=== PATIENT | male | born 1995 | race Caucasian/White ===

== ENCOUNTER 2021-01-31 14:53 | Emergency (ER) | payer OTHER ==
[~2021-01-31] VITALS: Ht 180.3 cm; Wt 87.3 kg
[2021-01-31] MEDS ORDERED: IBUP-1022 PO (15:07)
[2021-01-31] MEDS ORDERED: OXYC1TAB23 PO (15:07)
[2021-01-31] MEDS ORDERED: PERCOCET 5MG/325MG TAB PO ONE (19:10)
--- NOTE | 2021-01-31 19:59 | REP ---
INDICATION: left great toe injury COMPARISON: None. TECHNIQUE: Four views left foot. FINDINGS: There is no evidence of acute fracture, dislocation, or intrinsic bone disease.The joint spaces are unremarkable. IMPRESSION: No fracture or dislocation. <Electronically signed by Capo Sanders > 01/31/211954
[2021-01-31] MEDS ORDERED: CEPHALEXIN 500 MG CAP PO ONE (21:00)
[2021-01-31] MEDS ORDERED: CEPH500C PO (21:00)
--- NOTE | 2021-01-31 21:31 | REPVR ---
PROCEDURE INFORMATION: Exam: US Duplex Left Lower Extremity Veins, Limited Exam date and time: 01/31/2021 7:49 PM Age: 25 years old Clinical indication: Pain; Leg, lower; Left; Additional info: Left leg pain after injury, ? dvt TECHNIQUE: Imaging protocol: Real-time Duplex ultrasound of the Left Lower Extremity with 2-D barney scale, color Doppler flow and spectral waveform analysis with image documentation. Limited exam focused on the left lower extremity veins. COMPARISON: CR Foot, complete 01/31/2021 7:09 PM FINDINGS: Left deep veins: Unremarkable. The common femoral, femoral, proximal profunda femoral and popliteal veins are patent without thrombus. Normal Doppler waveforms. Normal compressibility and/or augmentation response. Left superficial veins: Unremarkable. Saphenofemoral junction is patent without thrombus. Soft tissues: Unremarkable. IMPRESSION: Negative left lower extremity venous duplex exam without evidence of deep venous thrombosis. Electronically signed by: Spencer Peace On 01/31/2021 21:31:21 PM
[2021-01-31 22:01] VITALS: BP 130/80
== END 2021-01-31 21:37 | disposition home or self-care (01) ==
LOC: M ED 14:53
DX: S90.212A Contusion of left great toe with damage to nail, initial encounter (principal); W23.0XXA Caught, crushed, jammed, or pinched between moving objects, initial encounter; Y92.89 Other specified places as the place of occurrence of the external cause; Y93.89 Activity, other specified; Y99.1 Military activity

== ENCOUNTER 2021-02-04 12:34 | Emergency (ER) | payer OTHER ==
[~2021-02-04] VITALS: Ht 180.3 cm; Wt 87.3 kg
[~2021-02-04 12:34] MED LIST: CEPH500C PO; IBUP-1022 PO; OXYC1TAB23 PO
--- NOTE | 2021-02-04 15:44 | REPVR ---
PROCEDURE INFORMATION: Exam: CT Left Lower Extremity Without Contrast, Ankle Exam date and time: 02/04/2021 2:39 PM Age: 25 years old Clinical indication: Pain; Ankle; Left; Additional info: Continuous pain /multiple visits/not able bear weight TECHNIQUE: Imaging protocol: CT of the Left lower extremity without contrast was performed. Exam focused on the ankle. Radiation optimization: All CT scans at this facility use at least one of these dose optimization techniques: automated exposure control; mA and/or kV adjustment per patient size (includes targeted exams where dose is matched to clinical indication); or iterative reconstruction. COMPARISON: US Duplex, Ext,LOWER veins,unilat LEFT 01/31/2021 7:54 PM FINDINGS: Bones/joints: No acute fracture. Ossifications present caudal to the distal medial malleolar tip which may represent chronic avulsions or accessory ossifications. An 11.3 x 7.2 x 4.1 mm os trigonum is present, a sometimes symptomatic normal variant. No calcaneal spur. Soft tissues: Soft tissue edema adjacent to the medial plantar fascia origin (series 204, image 19; series 201, images 79 -76). No calcifications within the plantar fascia. IMPRESSION: Possible plantar fasciitis. Clinical correlation with the patient's specific symptomatology is recommended. Electronically signed by: Kole Langford On 02/04/2021 15:43:57 PM
--- NOTE | 2021-02-04 15:48 | REPVR ---
PROCEDURE INFORMATION: Exam: CT Left Lower Extremity Without Contrast, Foot Exam date and time: 02/04/2021 2:39 PM Age: 25 years old Clinical indication: Pain; Foot; Left; Additional info: Continuous pain /multiple visits/not able bear weight TECHNIQUE: Imaging protocol: CT of the Left lower extremity without contrast was performed. Exam focused on the foot. Radiation optimization: All CT scans at this facility use at least one of these dose optimization techniques: automated exposure control; mA and/or kV adjustment per patient size (includes targeted exams where dose is matched to clinical indication); or iterative reconstruction. COMPARISON: US Duplex, Ext,LOWER veins,unilat LEFT 01/31/2021 7:54 PM FINDINGS: Bones/joints: No acute fracture. No destructive bony process identified. An os trigonum is present, a sometimes symptomatic normal variant. Soft tissues: Soft tissue edema adjacent to the medial plantar fascial origin. IMPRESSION: Possible plantar fasciitis. Clinical correlation with the patient's specific symptomatology is recommended. Electronically signed by: Kole Langford On 02/04/2021 15:47:42 PM
[2021-02-04 16:19] VITALS: BP 130/75
--- NOTE | 2021-02-04 18:41 | ED PDOC ---
Post-Departure Follow-Up ct foot and ankle faxed to monserr[facility] dexter for fu Taylor Tong MD Feb 04, 2021 18:41
== END 2021-02-04 16:22 | disposition home or self-care (01) ==
LOC: M ED 12:34
DX: S93.402A Sprain of unspecified ligament of left ankle, initial encounter (principal); S90.02XA Contusion of left ankle, initial encounter; M79.672 Pain in left foot; W20.8XXA Other cause of strike by thrown, projected or falling object, initial encounter; Y92.89 Other specified places as the place of occurrence of the external cause; Y93.9 Activity, unspecified; Y99.1 Military activity

== ENCOUNTER 2021-04-09 21:03 | Day surgery (SDC) | payer OTHER ==
[~2021-04-09] VITALS: Ht 180.3 cm; Wt 92.8 kg
[2021-04-09] MEDS ORDERED: ACET-841 PO (21:11)
[2021-04-10 01:38] LABS: BASO # 0.1 10^3/uL (0.0-0.2); BASO % 0.4 % (0.0-1.0); EOS # 0.1 10^3/uL (0.0-0.5); EOS % 0.5 % (0.0-3.0); HEMATOCRIT 45.6 % (42.0-52.0); HEMOGLOBIN 15.3 g/dl (13.5-17.5); LYMPH % 15.7 % (24.0-44.0); MEAN CORPUSCULAR HEMOGLOBIN 28.8 pg (27.0-33.0); MEAN CORPUSCULAR HGB CONC 33.6 g/dl (32.0-36.5); MEAN CORPUSCULAR VOLUME 85.7 fl (80.0-96.0); MONO # 2.5 10^3/uL (0.0-0.8); NEUTROPHILS # 13.5 10^3/uL (1.5-8.5); NEUTROPHILS % 69.9 % (36.0-66.0); PLATELET COUNT, AUTOMATED 240 10^3/uL (150-450); RED BLOOD COUNT 5.32 10^6/uL (4.30-6.10); WHITE BLOOD COUNT 19.3 10^3/uL (4.0-10.0)
[2021-04-10 02:13] LABS: ALBUMIN 4.1 GM/DL (3.2-5.2); ALT/SGPT 76 U/L (12-78); BILIRUBIN,DIRECT 0.2 MG/DL (0.0-0.2); BILIRUBIN,TOTAL 0.8 MG/DL (0.2-1.0); BLOOD UREA NITROGEN 18 MG/DL (7-18); CALCIUM LEVEL 9.4 MG/DL (8.5-10.1); CARBON DIOXIDE LEVEL 27 MEQ/L (21-32); CHLORIDE LEVEL 104 MEQ/L (98-107); CREATININE FOR GFR 1.34 MG/DL (0.70-1.30); GLOMERULAR FILTRATION RATE > 60.0 (>60); GLUCOSE, FASTING 81 MG/DL (70-100); LIPASE 83 U/L (73-393); POTASSIUM SERUM 4.1 MEQ/L (3.5-5.1); SODIUM LEVEL 138 MEQ/L (136-145); TOTAL PROTEIN 7.3 GM/DL (6.4-8.2)
[2021-04-10] MEDS ORDERED: MORPHINE 2 MG/ML 1ML VIAL (J2270) IV ONE ×2 (04:30→06:00)
[2021-04-10] MEDS ORDERED: PIPERACILLIN/TAZOBACTAM SOD 4.5 GM in D5W MINI-BAG PLUS 50 ML IV ONE (04:50)
--- NOTE | 2021-04-10 05:37 | REPVR ---
PROCEDURE INFORMATION: Exam: CT Abdomen And Pelvis Without Contrast Exam date and time: 04/10/2021 4:29 AM Age: 26 years old Clinical indication: Abdominal pain; Localized; Right lower quadrant (rlq); Additional info: Rule out appendicitis TECHNIQUE: Imaging protocol: Computed tomography of the abdomen and pelvis without contrast. Radiation optimization: All CT scans at this facility use at least one of these dose optimization techniques: automated exposure control; mA and/or kV adjustment per patient size (includes targeted exams where dose is matched to clinical indication); or iterative reconstruction. COMPARISON: No relevant prior studies available. FINDINGS: Lungs: There is minimal, nonspecific dependent density in the lung bases, likely mild atelectasis. Liver: The unenhanced liver appears unremarkable. Gallbladder and bile ducts: There has been a cholecystectomy. There is no biliary ductal dilation. Pancreas: The pancreas appears unremarkable. No pancreatic ductal dilation identified. Spleen: The unenhanced spleen appears unremarkable. Adrenal glands: The adrenal glands are normal. Kidneys and ureters: The unenhanced kidneys appear unremarkable. There are no ureteral stones or hydronephrosis. Stomach and bowel: Mild diverticulosis is present in the distal colon. There is no dilation or thickening of the colon. The small bowel appears unremarkable. Appendix: The appendix demonstrates thickening and distention, consistent with acute appendicitis. There is periappendiceal stranding. The appendix measures up to 13 mm in diameter. Intraperitoneal space: There is no evidence of free intraperitoneal or pelvic fluid. There is no free intraperitoneal air. Vasculature: No aortic aneurysm. Lymph nodes: There are a few mildly enlarged mesenteric lymph nodes in the right lower quadrant. Urinary bladder: The bladder is unremarkable. No stones identified. Reproductive: The prostate gland appears normal. Bones/joints: There is a mild deformity of the left ilium anteriorly, likely the sequela prior trauma. No suspicious osseous lesions. No acute fractures. Soft tissues: There is a small periumbilical hernia containing fat. IMPRESSION: 1. Evidence of acute appendicitis. No evidence of abscess or perforation. 2. Mild distal colon diverticulosis. No evidence of acute diverticulitis. Electronically signed by: Gay Stephens On 04/10/2021 05:36:53 AM
[2021-04-10] MEDS ORDERED: ONDANSETRON 4MG/2ML VIAL IV ONE (06:00)
[2021-04-10 06:01] LABS: RSV AMPLIFICATION NEGATIVE (NEGATIVE)
[2021-04-10] MEDS ORDERED: ACET-897 PO (06:09)
[2021-04-10] MEDS ORDERED: FISH1000 PO (06:09)
[2021-04-10] MEDS ORDERED: VITMTA PO (06:09)
[2021-04-10] MEDS ORDERED: RA M10TA PO (06:09)
[2021-04-10] MEDS ORDERED: HOME MED LIST COMPLETE! XX SCH (06:10)
[2021-04-10] MEDS: NS 1,000 ML IV SCH ×2 (06:11→15:15)
[2021-04-10] MEDS ORDERED: MORPHINE 4 MG/ML 1ML VIAL/SYRINGE (J2270) IV ONE (07:10)
[2021-04-10] MEDS ORDERED: MORPHINE 2 MG/ML 1ML VIAL (J2270) IV PRN ×2 (09:05→20:05)
[2021-04-10] MEDS ORDERED: KETOROLAC 30 MG/ML 1ML VIAL IV PRN (09:05)
[2021-04-10] MEDS ORDERED: ONDANSETRON 4MG/2ML VIAL IV PRN ×2 (09:05→20:05)
[2021-04-10] MEDS: PIPERACILLIN/TAZOBACTAM SOD 3.375 GM in D5W MINI-BAG PLUS 50 ML IV SCH ×2 (12:03→16:26)
[2021-04-10 14:25] VITALS: BP 149/84
[2021-04-10] MEDS: LR 1,000 ML IV SCH ×3 (14:34→23:31)
[2021-04-10] MEDS ORDERED: BUPIVACAINE HCL 0.25% 30ML VIAL As Ordered ONE (17:54)
[2021-04-10] MEDS ORDERED: LIDOCAINE 2% 100MG/5ML SDV (FOR ANES.) As Ordered ONE (18:05)
[2021-04-10] MEDS ORDERED: dexameTHASONE 4 MG/ML 1ML VIAL (J1100 PER 1MG) As Ordered ONE (18:05)
[2021-04-10] MEDS ORDERED: fentaNYL 250 MCG/5 ML INJECTION (J3010) As Ordered ONE (18:05)
[2021-04-10] MEDS ORDERED: propofoL 200 MG/20 ML VIAL As Ordered ONE ×2 (18:05→18:33)
[2021-04-10] MEDS ORDERED: ONDANSETRON 4MG/2ML VIAL As Ordered ONE (18:05)
[2021-04-10] MEDS ORDERED: MIDAZOLAM INJ 2MG/2ML VIAL (J2250 PER 1MG) As Ordered ONE (18:05)
[2021-04-10] MEDS ORDERED: ROCURONIUM BROMIDE 50 MG/5 ML VIAL As Ordered ONE (18:05)
[2021-04-10] MEDS ORDERED: METOCLOPRAMIDE INJ 10MG/2ML VIAL (J2765 PER 1) As Ordered ONE (18:36)
[2021-04-10] MEDS ORDERED: HYDROmorphone HCL 2 MG/ML 1ML VIAL As Ordered ONE (18:57)
[2021-04-10] MEDS ORDERED: SUGAMMADEX SODIUM 500 MG/5 ML VIAL (BRIDION) As Ordered ONE (18:57)
[2021-04-10] MEDS ORDERED: ACETAMINOPHEN 1000MG 100ML IV BTL (OFIRMEV) (J0131 PER 10MG) As Ordered ONE (18:57)
[2021-04-10] MEDS ORDERED: ACETAMINOPHEN TAB 650MG DOSE (2X325MG) PO PRN (20:05)
[2021-04-10] MEDS ORDERED: fentaNYL 100 MCG/2 ML INJECTION (J3010) IV PRN (20:05)
[2021-04-10] MEDS ORDERED: LR 1,000 ML IV SCH (20:05)
[2021-04-10] MEDS ORDERED: NORCO, ANEXSIA 5/325MG TABLET (HYDROcodone/ACETAMINOPHEN) PO PRN (20:05)
[2021-04-10] MEDS ORDERED: HYDROMORPHONE HCL 0.5 MG/ 0.5 ML SYRINGE (J1170 PER 1) IV PRN (20:05)
[2021-04-10] MEDS: oxyCODONE 5MG TAB PO PRN ×2 (20:42→21:09)
[2021-04-10] MEDS: IBUPROFEN 600MG TAB PO PRN (20:51)
[2021-04-10 21:18] VITALS: BP 139/76
[2021-04-10 21:50] VITALS: BP 127/69
[2021-04-10 22:30] VITALS: BP 124/66
[2021-04-10 23:30] VITALS: BP 121/60
[2021-04-11 00:30] VITALS: BP 118/61
[2021-04-11 01:30] VITALS: BP 111/68
[2021-04-11 02:30] VITALS: BP 118/58
[2021-04-11 06:00] VITALS: BP 117/59
[2021-04-11] MEDS: LR 1,000 ML IV SCH (07:45)
--- NOTE | 2021-04-11 08:55 | IPNPDOC ---
Text Note Date of Service The patient was seen on 04/11/21. NOTE General surgery. Dr. Zaidi The patient is a 26-year-old male status post laparoscopic appendectomy as per Dr. Zaidi 04/10/2021. Patient is out of bed this morning, reporting pain but has not taken any pain medication yet. Has not yet had breakfast, the patient has a clear liquid tray but has not eaten yet. Afebrile VSS Awake and alert, ambulating in the room Lungs are clear to auscultation S1-S2 regular rate rhythm Abdomen is soft, nontender, nondistended. Surgical sites are clean/dry/intact No edema No new lab Assessment/plan Acute appendicitis/status post laparoscopic appendectomy 04/10/[address] Zaidi The patient is reviewed as per Dr. Zaidi. The patient is reporting some pain this morning but has not yet taken any pain medications. He had 1 dose of ibuprofen last evening. Discussed with the patient he can take something for pain, he verbalizes agreement. The patient has not yet had breakfast, he has a clear liquid tray. Plan to advance diet as tolerated. Discontinue IV fluids when tolerating p.o. He has been out of bed and ambulating in the room. Continue to monitor. VS,Fishbone, I+O VS, Fishbone, I+O Vital Signs Date Time Temp Pulse Resp B/P (MAP) Pulse Ox O2 Delivery O2 Flow Rate FiO2 04/11/21 08:27 16 04/11/21 06:00 97.5 56 117/59 (78) 98 Nasal Cannula 1.0 I&O- Last 24 Hours up to 6 AM 04/11/21 05:59 Intake Total 4180 ml Output Total 565 ml Balance 3615 ml Attending Note Attending Note Agree with note by Chichi. I saw patient later in day (about 1600). Patient pretty comfortable. Tolerated clears well. Voiding well and + flatus. Imp: Ready for DC Plan: Patient counselled for DC and sent home. No work for 2 weeks. Script for pain meds sent. F/U in about 10 days or call for problems. Chichi South Apr 11, 2021 08:55 Chandler Zaidi Apr 12, 2021 19:36
[2021-04-11] MEDS: IBUPROFEN 600MG TAB PO PRN (13:36)
--- NOTE | 2021-04-11 13:59 | RO ---
OPERATIVE NOTE DATE OF OPERATION: 04/10/2021 PREOPERATIVE DIAGNOSIS: Acute appendicitis. POSTOPERATIVE DIAGNOSIS: Acute appendicitis. PROCEDURE PERFORMED: Laparoscopic appendectomy. SURGEON: Chandler Zaidi MD COMMERCIAL PRODUCER: None. ANESTHESIA: General. INDICATIONS FOR PROCEDURE: The patient is a generally healthy 26-year-old man who presented to the emergency department with one day history of abdominal pain becoming severe and localized to the right lower quadrant. He was found to have an elevated white blood cell count and CT scan showed inflammation of the appendix consistent with acute appendicitis. He is now for laparoscopic appendectomy. DESCRIPTION OF PROCEDURE: The patient was brought to the operating room and placed on the table in supine position. He was placed under general endotracheal anesthesia. The patient's abdomen was clipped of hair, prepped and draped in sterile fashion. 0.25% Marcaine was infiltrated at the trocar sites as needed. A short longitudinal midline incision was made approximately 5 cm above the umbilicus. This was deepened to the fascia. A Veress needle was inserted and after positive hanging drop test the abdomen was inflated with CO2 gas. The fascia was incised and a 12 mm port was placed without difficulty. Initial examination showed a few filmy adhesions in the lower mid abdomen. There were a few adhesions in the right upper quadrant consistent with his previous history of cholecystectomy. The patient was placed in slight Trendelenburg position and rolled slightly to the left. Two 5 mm ports were placed in the left lower quadrant. Graspers were inserted. The cecum was identified. The appendix was identified extending inferiorly from the cecum. The distal third to half of the appendix was clearly inflamed and edematous with some exudate present. The appendix was grasped and elevated. The mesoappendix was divided using cautery with care to completely cauterize the vascular bundle. The dissection was carried down to the base of the appendix. The appendix was stapled at its juncture with the cecum using endoscopic linear cutter stapler. The appendix was placed in an Endopouch. A few tiny points of bleeding on the staple line were cauterized. The right lower quadrant was irrigated and inspected. There was no evidence of bleeding. The patient was returned to a flat position. The abdomen was deflated and the trocars were removed. The appendix was recovered through the supraumbilical site. The fascia at this site was approximated with interrupted simple sutures of 2-0 Vicryl. The skin incisions were all closed with buried 4-0 Vicryl and Steri-Strips. Light dressings were applied. The patient tolerated the procedure well without apparent complication. He was awakened in the operating room, extubated and moved to the recovery room in stable condition. DANA
[2021-04-11 15:40] VITALS: BP 128/61
[2021-04-11] MEDS ORDERED: HYDR-3715 PO (16:29)
== END 2021-04-11 17:38 | disposition home or self-care (01) ==
LOC: M ED 21:03 → M SDC 21:04 → ENRESERV 04-10 09:00 → M MSPAV 04-10 14:25 → M SDC 04-11 17:38
PROVIDERS: ATTEND Surgery
DX: K35.890 Other acute appendicitis without perforation or gangrene (principal)
CPT/HCPCS: 36415; 44970; 74176; 80048; 80076; 83690; 85025; 86850; 86900; 86901; 87631; 88304; 96361; 96365; 96366; 96375; 96376; 99285; J0131; J1100; J1170; J1885; J2250; J2270; J2405; J2543; J2765; J3010

== ENCOUNTER 2021-04-16 14:32 | Emergency (ER) | payer OTHER ==
[~2021-04-16] VITALS: Ht 180.3 cm; Wt 92.7 kg
[~2021-04-16 14:32] MED LIST changes: +ACET-841 PO; +ACET-897 PO; +FISH1000 PO; +HYDR-3715 PO; +RA M10TA PO; +VITMTA PO
--- OUTSIDE RECORDS SUMMARY | 2021-04-16 14:38 | CCD ---
Author Author [facility] Organization [facility] Address Unknown Phone Unavailable Care Team Providers Care Medical Appliance Maker Name Role Phone TURRIN, MALKA Unavailable Unavailable TURRIN, MALKA Unavailable Unavailable TURRIN, MALKA Unavailable Unavailable TURRIN, MALKA Unavailable Unavailable [facility] Unavailable Unavailable Re-disclosure Warning The records that you are about to access may contain information from federally-assisted alcohol or drug abuse programs. If such information is present, then the following federally mandated warning applies: This information has been disclosed to you from records protected by federal confidentiality rules (42 CFR part 2). The federal rules prohibit you from making any further disclosure of this information unless further disclosure is expressly permitted by the written consent of the person to whom it pertains or as otherwise permitted by 42 CFR part 2. A general authorization for the release of medical or other information is NOT sufficient for this purpose. The Federal rules restrict any use of the information to criminally investigate or prosecute any alcohol or drug abuse patient.The records that you are about to access may contain highly sensitive health information, the redisclosure of which is protected by Article 27-F of the [facility] Public Health law. If you continue you may have access to information: Regarding HIV / AIDS; Provided by facilities licensed or operated by the [facility] Office of Mental Health; or Provided by the [facility] Office for People With Developmental Disabilities. If such information is present, then the following [facility] mandated warning applies: This information has been disclosed to you from confidential records which are protected by state law. State law prohibits you from making any further disclosure of this information without the specific written consent of the person to whom it pertains, or as otherwise permitted by law. Any unauthorized further disclosure in violation of state law may result in a fine or long term sentence or both. A general authorization for the release of medical or other information is NOT sufficient authorization for further disc losure. Encounters Encounter Providers Location Date Indications Data Source(s ) Emergency Attender: MALKA ROSALESConsultant: DEISY CRISTOBALH KEY 01/29/2021 06:07:00 PM EDT - 01/29/2021 11:16:00 PM EDT [facility] Patient discharged. Medications No Information Insurance Providers Payer name Policy type / Coverage type Policy ID Covered green party ID Covered green party's relationship to gonzalez Policy Gonzalez Plan Information [employer] [id number] SP [id number] [employer] [id number] SP [id number] [facility] [employer] - O/P [id number] 18 [id number] Problems, Conditions, and Diagnoses Code Display Name Description Problem Type Effective Dates Data Source(s) Y9289 Other specified places as the place of o ccurrence of the external cause Other specified places as the place of occurrence of the external cause Diagnosis 01/29/2021 06:07:00 PM EDT [facility] [id number] Other cause of strike by thr own, projected or falling object, initial encounter Other cause of strike by thrown, project ed or falling object, initial encounter Diagnosis 01/29/2021 06:07:00 PM EDT [facility] [id number] Crushing injury of left great toe, initi al encounter Crushing injury of left great toe, initial encounter Diagnosis 01/29/2021 06:07:00 PM EDT [facility] [id number] Unspecified open wound of le ft great toe with damage to nail, initial encounter Unspecified open wound of left great toe with damage to nail, initial encounter Diagnosis 01/29/2021 06:07:[address] [facility] [id number] Unspecified injury of left foot, initial encounter Unspecified injury of left foot, initial encounter Diagnosis 01/29/2021 06:07:00 PM EDT [facility] Surgeries/Procedures No Information Results ID Date Data Source [id number] 04/10/2021 04:57:00 AM EDT MARY ALICEDE Name Value Range Interpretation Code Description Data Kristin rce(s) Supporting Document(s) SARS coronavirus 2 RNA [Presence] in Res piratory specimen by KATHY with probe detection NEGATIVE NYSDDE This lab was ordered by [facility] a nd reported by [facility]. ID Date Data Source [id number] 01/31/2021 01:33:00 PM EDT [facility] [address] [place] [address] PHONE: [phone] FAX: [phone] Name .................. : PAYTON Lopez Acct Number.................. : [id number] ROOM. ................. : TR-08 Number ................... : [id number] Stay type ............. : E/R Discharge Date......... ... : 01/29/21 Admit Date ......... : 01/29/21 Admit Phys .................... : CONNIE VEE Date of ....... : 1995 Family Phys ................... : UNKNOWN Phone .................. : [phone] Age ................................ : 25 Film# .................. .:[id number] Sex ................................. : M Unsigned transcriptions are preliminary reports and do not represent a medical or legal document FOOT COMP - BILATERAL 42276 COMPLETE:01/29/21 22:07 DLA 33097 Reason(s): 1700 lb create fell off pallet kandi and landed on feet. left gre RADIOGRAPHS OF THE BILATERAL FEET 8 VIEWS INDICATION: 1700 pound crate fell off pallet kandi and landed on feet. Left toe laceration. COMPARISON: None. FINDINGS: No acute fracture or dislocation. No focal bone lesion. No soft tissue gas. Scattered tiny densities are suspected to represent image artifact rather than foreign bodies. Visible joint spaces are well preserved. No marginal osteophytes or erosions. No significant soft tissue abnormality. IMPRESSION: Negative study. Electronically Reviewed and Signed By Huy Alaniz MD , 01/31/21 13:33, MIKE Transcribe Initials: JENNIFER, Transcribe Date: 01/31/21 13:01, Dictation Date: Copy for: JOHN BENSON via fax Copy for: EMERGENCY DEPT via modem Copy for: 710 MED REC DISCHARGED Page 1 of 1 Name Value Range Interpretation Code Description Data Kristin rce(s) Supporting Document(s) ID Date Data Source [id number] 01/29/2021 06:07:00 PM EDT [facility] 1 OrderSheet [facility] Emergency Department [address] [place] [address] Phone #: ext- [phone] 01/29/2021 18:02 Patient: SHIELA CAIN Sex: M : 1995 Age: 25yWEIGHT:87.0 kg HEIGHT:71 inches BMI:26.8ALLERGIES: No Known Drug AllergyCHIEF COMPLAINT: Rt, foot, Lt, Lt, great toeDIAGNOSIS: Crushing injury, Avulsion injury of fingernailLAB ORDERSOrder Description Priority Entered Acknowledged InitialedDIAGNOSTIC STUDY ORDERSOrder Description Priority Entered Acknowledged InitialedFoot Complete STAT 20:42 01/29/2021 21:37 Sherry BernardBilateral Linda Saldaña R.N.(Oxygen?(No)) KENZIE; Reason for Study: 1700 lb create fell off pallet kandi and landed on feet. left great toe most painfulMEDICATION/IV/DRIP/FLUID ORDERSOrder Description Priority Entered Acknowledged InitialedToradol IM 30 mg 20:42 01/29/2021 20:50 Sherry Bernard(NOW x1) Linda ESPINO;Bupivacaine 22:19 01/29/2021 Ack'd: 22:20 22:24 Louisaaraumu,Injection 0.25 % Veronica Pantoja R.N.(soln) (with PA; R.NAnthonysyringes needles)Bacitracin Zinc 22:43 01/29/2021 22:45 Sherry BernardTopical 1 Linda Saldaña R.N.application PA;Percocet PO 1 tab 22:59 01/29/2021 23:08 Sherry Bernard(dispense home) Linda ESPINO;GENERAL ORDERSOrder Description Priority Entered Acknowledged InitialedCrutches (5ft 11in) 22:59 01/29/2021 22:59 Sherry Bernard R.N.; 2 OrderSheet [facility] Emergency Department [address] [place] [address] Phone #: ext- [phone] 01/29/2021 18:02 Patient: SHIELA CAIN Sex: M : 1995 Age: 25y[Electronically signed by Sherry Bernard R.N. (23:16 01/29/2021)][Electronically signed by Linda Saldaña (18:58 01/30/2021)][Electronically locked by Sherry Bernard R.N. (23:16 01/29/2021)] Name Value Range Interpretation Code Description Data Kristin rce(s) Supporting Document(s) ID Date Data Source [id number] 01/29/2021 06:07:00 PM EDT [facility] 1 Medication Reconciliation Report [facility] Emergency Department [address] [place] [address] Phone #: ext- [phone] 01/29/2021 18:02 Patient: SHIELA CAIN Sex: M : 1995 Age: 25yWeight: 87.0 kgHeight/Length: 71 in.BMI: 26.8ALLERGIES: No Known Drug AllergyThe patient's Home Medications are listed below:NONE.The source(s) of the original Home Medication information:Not obtained.The following Medications were given to the patient in the Emergency Department:Toradol [IM] IM 30 mg, administered: 20:50 1Bupivacaine [Injection] Injection 0.25 %, administered: 22:24 1Bacitracin Zinc [Topical] Topical 1 application, administered: 22:45 1Percocet [PO] PO 1 tab, administered: 23:08 01/29/2021The following Medications were prescribed to the patient:Percocet 5 mg-325 mg tablet Take 1 tablet every four to six hours as needed for pain -- Dispense 8tablet. Refills: 0. Substitution permitted.Pharmacy - [facility] [address] ; [place] [address]. .ibuprofen 600 mg tablet 1 tablet every six hours -- Dispense 30 tablet. Refills: 0. Substitutionpermitted.Pharmacy - [facility] [address] ; [place] [address]. . -- Parveen Macecomauro 5/325mg; 1 tab by mouth as needed for pain. dispense 1 tab home from [facility]. -- KENZIE Mace Name Value Range Interpretation Code Description Data Kristin rce(s) Supporting Document(s) ID Date Data Source [id number] 01/29/2021 06:07:00 PM EDT [facility] 1 Medication Administration Record [facility] Emergency Department [address] [place] [address] Phone #: ext [phone] 01/29/2021 18:02 Patient: SHIELA CAIN Sex: M : 1995 Age: 25yWeight: 87.0 kgHeight/Length: 71 inBMI: 26.8ALLERGIES: No Known Drug Allergy Date/Time Medication Administered Medication OrderedGiven TORADOL [IM] (KETOROLAC Toradol IM 30 mg (NOW x1)20:50 01/29/2021 TROMETHAMINE)Sherry Bernard RAnthonyNAnthony Dose: 30 mg IMGiven BUPIVACAINE [INJECTION] Bupivacaine Injection 0.25 %22:24 01/29/2021 Dose: 0.25 % Injection (soln) (with syringes needles)Veronica Ambrocio R.N.Given BACITRACIN ZINC [TOPICAL] Bacitracin Zinc Topical 122:45 01/29/2021 Dose: 1 application Topical Solution applicationSherry Bernard RAnthonyNAnthony TopicalGiven PERCOCET [PO] Percocet PO 1 tab (kkuyiprc61:08 01/29/2021 (OXYCODONE- ACETAMINOPHEN) home)Sherry Bernard R.N. Dose: 1 tab 5/325 mg Tablets PO Name Value Range Interpretation Code Description Data Kristin rce(s) Supporting Document(s) ID Date Data Source [id number] 01/29/2021 06:07:00 PM EDT [facility] 1 General Instructions [facility] Emergency Department [address] [place] [address] Phone #: ext- [phone] 01/29/2021 18:02 Patient: SHIELA CAIN Sex: M : 1995 Age: 25yCrush injury to the left great toe.Partial nail avulsion to left great toe.INSTRUCTIONSApply ice. Use crutches. Elevate affected areas above chest level. No weight bearing. Do not work forfour.(Activity as tolerated. Elevation is very important. return to the ER immediately for worsening or concerningsymptoms otherwise, follow up with your regular provider tomorrow for recheck).Warnings: GENERAL WARNINGS: Return or contact your physician immediate ly if your conditionworsens or changes unexpectedly, if not improving as expected, or if other problems arise. Specificallyreturn if problem worsens or fails to resolve.Your Current Medications: Your current home medications have been reviewed.CONTINUE TAKING THE FOLLOWING MEDICATIONS:None*.Prescription Medications:Percocet 5 mg-325 mg tablet Take 1 tablet every four to six hours as needed for pain -- Dispense 8tablet. Refills: 0. Substitution permitted.Pharmacy - [facility] [address] ; [place] [address]. .ibuprofen 600 mg tablet 1 tablet every six hours -- Dispense 30 tablet. Refills: 0. Substitutionpermitted.Pharmacy - [facility] [address] ; [place] [address]. .percocet 5/325mg; 1 tab by mouth as needed for pain. dispense 1 tab home from [facility].Understanding of the discharge instructions verbalized by patient.Follow-up with: [facility], , , , , , , Follow up tomorrow. Reason for referral: evaluation and treatment. Summary of care provided to mark paper. 2 General Instructions [facility] Emergency Department [address] [place] [address] Phone #: ext- [phone] 01/29/2021 18:02 Patient: SHIELA CAIN Sex: M : 1995 Age: 25y ADDITIONAL INFORMATIONCrush Injury of the Foot, No FractureA crush injury to your foot causes local pain, swelling, and sometimes bruising. There are no brokenbones. This injury takes from a few days to a few weeks to heal. If the toenail has been severelyinjured, it may fall off in 1 to 2 weeks. A new one will usually start to grow back within a month.Home careThe following guidelines will help you care for your wound at home: You may be given a splint, shoe, or boot to prevent movement at the injury. Unless you were told otherwise, use crutches or a walker and don't bear weight on the injured foot until your doctor says it's OK. You can rent crutches and walkers at many pharmacies and surgical/orthopedic supply stores. Don't put weight on a plaster or fiberglass splint, or it will break. Keep your leg elevated to reduce pain and swelling. When sleeping, place a pillow under the injured leg. When sitting, support the injured leg so it is level with your waist. This is very important during the first 2 days (48 hours). Put an ice pack on the injured area. Do this for 20 minutes every 1 to 2 hours the first day for pain relief. You can make an ice pack by wrapping a plastic bag of ice cubes in a thin towel. As the ice melts, be careful that the splint, boot, or shoe doesn't get wet. Continue using the ice pack 3 to 4 times a day until the pain and swelling go away. You may use btyv-ddg-gxwqkyr pain medicine such as acetaminophen, ibuprofen, or naproxen to control pain, unless another pain medicine was prescribed. If you have chronic liver or kidney disease, talk with your healthcare provider before using these medicines. Also talk with your provider if you've had a stomach ulcer or gastrointestinal bleeding. Keep the splint ,boot, or shoe dry. When bathing, protect it with a large plastic bag, rubber-banded at the top end. If a fiberglass splint or boot gets wet, you can dry it with a liberal arts and humanities chair. Unless told otherwise, you can take off the boot or shoe to bathe. If your injury includes exposed cuts or scrapes, clean these daily with soap and water. Apply antibiotic ointment. Watch for the signs of infection listed below.Follow-up careFollow up with your healthcare provider, or as advised. Return sooner if you don't start to get betterwithin the next 3 days. If you were given a splint, it may be changed to a cast or boot at your follow-upvisit. [address] [facility] Emergency Department [address] [place] [address] Phone #: ext- [phone] 01/29/2021 18:02 Patient: SHIELA CAIN Sex: M : 1995 Age: 25yIf X-rays were taken, you will be told of any new findings that may affect your care.When to seek medical adviceCall your healthcare provider right away if any of these occur: The plaster splint becomes wet or soft The fiberglass splint remains wet for more than 24 hours Increased tightness or pain under the splint Toes become swollen, cold, blue, numb, or tingly Redness, warmth, swelling, drainage from the wound, or foul odor from a cast or splint You can't move your toes The skin around the splint becomes red Fever of 100.4F (38C) or higher, or as directed by your healthcare provider [phone] [employer]. [address] [place] [address]. All rights reserved. This information is not intended as asubstitute for professional medical care. Always follow your healthcare professional's instructions. You have been given the following additional information: Crush Injury, Foot/Toe No weight bearing. Do not work for four.(Electronically signed by KENZIE Mace 01/30/2021 18:58) Name Value Range Interpretation Code Description Data Kristin rce(s) Supporting Document(s) ID Date Data Source [id number] 01/29/2021 06:07:00 PM EDT [facility] 1 Clinical Report - Nurses [facility] Emergency Department [address] [place] [address] Phone #: oyy- [phone] 01/29/2021 18:02 Patient: SHIELA CAIN Sex: M : 1995 Age: 25yTRIAGEArrived by private vehicle. Historian: patient. Accompanied by family.Acuity: LEVEL 4.Chief Complaint: INJURY TO LEFT FOOT. INJURY TO THE LEFT GREAT TOE.18:58 01/29/21. Alert. No acute distress.Occurred 17:30 01/29/2021. ( Pt states he dropped a 1700 pound crate on his L great toe at 1730. Ptambulates into triage with limp. Subungual hematoma noted to nail.).Treatment MOBILITY SPECIALIST:None.SEPSIS SCREEN: SIRS SCREEN NEGATIVE. SEPSIS SCREEN NEGATIVE. No suspected or confirmedsigns of infection present.STEPHANE COMA SCORE: 15- eyes open- spontaneous (4); best verbal response- oriented (5); bestmotor response- obeys commands (6). --18:58 01/29/21 Sherry Bernard R.N.18:54 01/29/21. BP: 146/70. MAP: 95. HR: 54. RR: 16. O2 saturation: 98%. Temp: 98.1 F. Pain level now:03/09. --18:58 01/29/21 Sherry Bernard R.N.Weight: 87 kg. Height/Length: 71 inches. BMI: 26.8. --18:56 01/29/21 Sherry Bernard R.N.MedicationsNone. --18:55 01/29/21 Sherry Bernard R.N.AllergiesNo Known Drug Allergy. --18:55 01/29/21 Sherry Bernard R.N.PROBLEMS:no known problems.ADDITIONAL SURGERIES:Cholecystectomy.Right foot surgery. --18:56 01/29/21 Sherry Bernard R.N.Jlqgaua08:58 01/29/21.SOCIAL HX: Never smoker. No alcohol use or drug use. He was offered HIV testing but declined and 2 Clinical Report - Nurses [facility] Emergency Department [address] [place] [address] Phone #: ext- [phone] 01/29/2021 18:02 Patient: SHIELA CAIN Sex: M : 1995 Age: 25y hepatitis C testing but declined. He has not traveled outside the [place] Infectious disease exposure: The patient was not expos ed to C-diff, MRSA or Coronavirus. SELF HARM ASSESSMENT: Self harm assessment was performed. The patient answered "no" to the question(s) "Have you recently felt down, depressed, or hopeless?", "Do you have thoughts of harming or killing yourself?", "Do you have a plan for harming or killing yourself?", "Have you recently had thoughts about harming or killing others?", "Do you have any dangerous items in your possession?", "Have you noticed less interest or pleasure in doing things?", "Are you here because you tried to hurt yourself?" and "Have you ever tried to hurt yourself before today?". ABUSE ASSESSMENT: No report of abuse. NUTRITIONAL RISK ASSESSMENT: The nutritional risk assessment revealed no deficiencies. FUNCTIONAL ASSESSMENT: Functional assessment: no impairments noted. LEARNING NEEDS ASSESSMENT: The learning needs assessment revealed no barriers. FALL RISK ASSESSMENT: Fall risk assessment completed. No risk factors identified. SKIN INTEGRITY ASSESSMENT: Skin integrity risk assessment completed. No skin integrity risk identified. --18:58 01/29/21 Sherry Bernard R.N. Interventions 18:58 01/29/21. Identification band on patient. To treatment room. --18:58 01/29/21 Sherry Bernard R.N.PHYSICAL [id number] 01/29/21. Ambulatory to room.GENERAL / NEURO / PSYCH: Oriented X 4. Alert. Appears in no acute distress.EXTREMITIES: Capillary refill is less than 2 seconds in the extremities. Extremity pulses are withinnormal limits. Pain with weight bearing. Neuro-vascular status intact to the extremity. Right foot:erythema of the first toe. Left foot: swelling, erythema and ecchymosis of the first toe (subungualhematoma).SKIN: Skin is warm and dry. ( bleeding around nailbed to L great toe). --19:46 01/29/21 Sherry Bernard R.N.NURSING PROGRESS NOTES19:42 01/29/21. Patient gowned. Two patient identifiers checked. Call light placed in reach. Side railsup x 1. Bed placed in lowest position. Brakes of bed on. Patient ready for evaluation- ED physician andPA notified. --19:42 01/29/21 Sherry Bernard R.N. 19:47 01/29/21. BP: 149/94. HR: 59. RR: 16. O2 saturation: 100%. --19:47 01/29/21 [facility] cardiology physician assistantAlivia ER Tech1 20:50 01/29/2021 Toradol (Ketorolac Tromethamine) IM 30 mg given. Given in the left deltoid. Allergies 3 Clinical Report - Nurses [facility] Emergency Department [address] [place] [address] Phone #: ext- [phone] 01/29/2021 18:02 Patient: SHIELA CAIN Sex: M : 1995 Age: 25y verified and confirmed 5 rights. Information reviewed with patient including reason for taking this medication, signs of allergic reaction and precautions. Verbalizes understanding. --20:50 01/29/21 Sherry Bernard R.N. 22:23 01/29/21. ( PA at bedside with patient). --22:23 01/29/21 Sherry Bernard R.N. 22:24 01/29/2021 Bupivacaine Injection 0.25 % given. Allergies verified and confirmed 5 rights. Information reviewed with patient. Verbalizes understanding. (Left toe given by KENZIE Saldaña). --22:24 01/29/21 Veronica Ambrocio R.N. 22:45 01/29/2021 Bacitracin Zinc Topical Topical Solution 1 application placed on a 2x2 gauze, applied to the laceration and secured with tape. Allergies verified and confirmed 5 rights. Information reviewed with patient including reason for taking this medication, signs of allergic reaction and precautions. Verbalizes understanding. (Applied by Linda ESPINO). --22:45 01/29/21 Sherry Bernard R.N. Patient fit with new crutches. Crutch training performed by nurse; the patient demonstrated proper use. --23:03 01/29/21 Sherry Bernard R.N. 23:08 01/29/2021 Percocet (oxyCODONE-Acetaminophen) PO 5/325 mg Tablets 1 tab given Allergies verified and confirmed 5 rights. Information reviewed with patient including reason for taking this medication, signs of allergic reaction, precautions and sedative warning. Verbalizes understanding. (Given as a home medication. Pt given paper RX with tablet. Copy of RX and tab made and placed on pt chart). --23:09 01/29/21 Sherry Bernard R.N.DISPOSITION / DISCHARGE 22:54 01/29/21. BP: 133/74. MAP: 93. HR: 59. RR: 18. O2 saturation: 98%. Temp: 98.1 F. Pain level now: 08/09. --22:55 01/29/21 Sherry Bernard R.N. 23:15 01/29/21. Stephane Coma Scale: 15- eyes open- spontaneous (4); best verbal response- oriented (5); best motor response- obeys commands (6). Condition at departure: improved and stable. No learning barriers present. Discharge instructions provided and reviewed with director of enterprise strategy and the patient. Reviewed medication(s) side effects, precautions, dosing and course information. Prescription(s) given to the patient and sent electronically to pharmacy. Medication(s) for home use given to the patient per protocol. Patient and director of enterprise strategy verbalized understanding. Written instructions provided in Guamanian. The patient was discharged by the physician records management assistant. He was discharged home and accompanied by director of enterprise strategy. He left ambulatory on crutches and via private vehicle. Health And Human Performance Professor driving. --23:15 01/29/21 Sherry Bernard R.N.Locked/Released at 01/29/2021 23:16 by Sherry Bernard R.N. 4 Clinical Report - Nurses [facility] Emergency Department [address] [place] [address] Phone #: ext- [phone] 01/29/2021 18:02 Patient: SHIELA CAIN Sex: M : 1995 Age: 25y Name Value Range Interpretation Code Description Data Kristin rce(s) Supporting Document(s) ID Date Data Source [id number] 01/29/2021 06:07:00 PM EDT [facility] 1 Clinical Report - Physicians/Mid Levels [facility] Emergency Department [address] [place] [address] Phone #: ext- [phone] 01/29/2021 18:02 Patient: SHIELA CAIN Sex: M : 1995 Age: 25y Time Seen: 20:31 01/29/2021. Arrived- By private vehicle. Historian- patient. Disposition decision: 23:12 01/29/2021.HISTORY OF PRESENT ILLNESS Chief Complaint: Injury to the right and left foot and left great toe. The injury happened 1730 today. The patient sustained a direct blow (A 1700 lb crate fell off a pallet kandi onto both feel but his left great toe was most affected. The injury occurred at work earlier today). Occurred at work. Patient is experiencing severe pain. No other injury. (Pt reports some tingling in the most distal asp of all of his toes. No other injures reported. His left great toe nail is bloody).REVIEW OF SYSTEMSNo chills, fatigue, fever, eye irritation or ear pain. No chest pain, cough, difficulty breathing, nausea orvomiting. No back pain, skin rash or dizziness. He has had nasal congestion and joint pain.PAST HISTORYTetanus immunization status is up-to-date. Problems: no known problems. Additional Surgeries: Cholecystectomy. Right foot surgery. Medications: None. Allergies: No Known Drug Allergy.SOCIAL HISTORYNever smoker. No alcohol use or drug use.ADDITIONAL NOTESThe nursing notes have been reviewed with agreement regarding the chief complaint, HPI, ROS, PMH andpatient medications and allergies.PHYSICAL EXAM 2 Clinical Report - Physicians/Mid Levels [facility] Emergency Department [address] [place] [address] Phone #: ext- [phone] 01/29/2021 18:02 Patient: SHIELA CAIN Sex: M : 1995 Age: 25y Vital Signs: 01/29/2021 19:47 BP: 149/94. MAP: 112. HR: 59. RR: 16. O2 saturation: 100%. 01/29/2021 18:54 BP: 146/70. MAP: 95. HR: 54. RR: 16. O2 saturation: 98%. Temp: 98.1 F. Pain level now: 910. Have been reviewed and appear to be correct. Hypertensive. Heart rate normal. Respiratory rate normal. Temperature normal. Oxygen saturation normal. Appearance: Alert. Oriented X3. No acute distress. Head: Head atraumatic. Neck: Normal inspection. CVS: Normal heart rate and rhythm. Heart sounds normal. Respiratory: No respiratory distress. Breath sounds normal. Chest nontender. Abdomen: No visible injury. Back: Normal inspection. Skin: Skin intact. Skin warm and dry. Extremities: Foot/ankle bony tenderness (bilateral feet: dorsal/distal tenderness. ROM intact). Left great toe: mild erythema, severe tenderness, moderate swelling and small ecchymosis of the proximal phalanx and distal phalanx; limited movement secondary to pain (diminished flexion and extension); medium sized subungual hematoma present. Neurovascular intact distally. (toenail partially avulsed but flat over nailbed). No deformity. No ankle injury. Foot and ankle exam otherwise negative. Extremities otherwise negative. Neuro, Vascular and Tendons: Vascular status intact. Sensation intact. Motor intact. Tendon function intact. Gait: Limping gait. Neuro: Oriented X 3.PROGRESS AND PROCEDURESDigital Nerve Block- Toe: Time-out completed immediately before the procedure. (procedure reviewedwith pt. Risks and benefits discussed. Verbal consent obtained). Digital nerve block performed on the leftgreat toe. Dorsal approach utilized. Landmarks identified. Skin prepped. Total volume of 2 mL 1%Lidocaine and 0.5% Marcaine infiltrated via two punctures using a 25-gauge needle. Patient cooperativeduring procedure. No complications encountered. Excellent anesthesia achieved. Course of Care: Toradol given for pain in addition to a digit block. Pt more comfortable. x-ray of both feet ordered. Study reviewed by Dr Rosales and myself. No obvious fx noted. Study will be reviewed by radiologist tomorrow. Left great toenail partially avulsed but lying flat on the nail bed. Subungual hematoma noted but blood is able to seep out around the nail. Toe cleaned with 500ml of saline. bacitracin and dressing placed. Pt and findings discussed with Dr Rosales. Crutches and pain medications given (pt sent home with percocet 5/325 x 1). Advised close follow up with PCP or ortho tomorrow. Return to the ER for worsening or concerning symptoms. Disposition: Discharged home. Discharge decision based on the following: patient's condition is stable; patient is ambulatory; patient's pain is controlled; patient's exam is improved; no seriously abnormal test results; improving condition on repeat evaluation; social support is adequate; transportation is available; follow-up is available; clinical impression is consistent with outpatient treatment. 3 Clinical Report - Physicians/Mid Levels [facility] Emergency Department [address] [place] [address] Phone #: ext- [phone] 01/29/2021 18:02 Patient: SHIELA CAIN Sex: M : 1995 Age: 25yCLINICAL IMPRESSION Crush injury to the left great toe. Partial nail avulsion to left great toe.INSTRUCTIONS Apply ice. Use crutches. Elevate affected areas above chest level. No weight bearing. Do not work for four. (Activity as tolerated. Elevation is very important. return to the ER immediately for worsening or concerning symptoms otherwise, follow up with your regular provider tomorrow for recheck). Warnings: GENERAL WARNINGS: Return or contact your physician immediately if your condition worsens or changes unexpectedly, if not improving as expected, or if other problems arise. Specifically return if problem worsens or fails to resolve. Your Current Medications: Your current home medications have been reviewed. CONTINUE TAKING THE FOLLOWING MEDICATIONS: None*. Prescription Medications: Percocet 5 mg-325 mg tablet Take 1 tablet every four to six hours as needed for pain -- Dispense 8 tablet. Refills: 0. Substitution permitted. Pharmacy - [facility] [phone] ; [place] [address]. . ibuprofen 600 mg tablet 1 tablet every six hours -- Dispense 30 tablet. Refills: 0. Substitution permitted. [facility] [phone] ; [place] [address]. . percocet 5/325mg; 1 tab by mouth as needed for pain. dispense 1 tab home from the EDVOID. Understanding of the discharge instructions verbalized by patient. Follow-up with: [facility] CALL [facility], , , , , , , Follow up tomorrow. Reason for referral: evaluation and treatment. Summary of care provided to patient via paper. 4 Clinical Report - Physicians/Mid Levels [facility] Emergency Department [address] [place] [address] Phone #: ext- [phone] 01/29/2021 18:02 Patient: SHIELA CAIN Sex: M : 1995 Age: [age]y(Electronically signed by KENZIE Mace 01/30/2021 18:58) Name Value Range Interpretation Code Description Data Kristin rce(s) Supporting Document(s) Procedure Social History No Information
[2021-04-16] MEDS ORDERED: NS 1,000 ML IV ONE (15:15)
[2021-04-16] MEDS: HYDROMORPHONE HCL 0.5 MG/ 0.5 ML SYRINGE (J1170 PER 1) IV PRN ×2 (15:31→17:21)
[2021-04-16 15:32] LABS: BASO # 0.1 10^3/uL (0.0-0.2); BASO % 1.1 % (0.0-1.0); EOS # 0.4 10^3/uL (0.0-0.5); EOS % 4.7 % (0.0-3.0); HEMATOCRIT 51.9 % (42.0-52.0); HEMOGLOBIN 17.2 g/dl (13.5-17.5); LYMPH % 22.4 % (24.0-44.0); MEAN CORPUSCULAR HEMOGLOBIN 28.3 pg (27.0-33.0); MEAN CORPUSCULAR HGB CONC 33.1 g/dl (32.0-36.5); MEAN CORPUSCULAR VOLUME 85.5 fl (80.0-96.0); MONO # 1.9 10^3/uL (0.0-0.8); MONO % 21.5 % (2.0-8.0); NEUTROPHILS # 4.3 10^3/uL (1.5-8.5); NEUTROPHILS % 48.7 % (36.0-66.0); PLATELET COUNT, AUTOMATED 260 10^3/uL (150-450); RED BLOOD COUNT 6.07 10^6/uL (4.30-6.10); WHITE BLOOD COUNT 8.9 10^3/uL (4.0-10.0)
[2021-04-16 15:45] LABS: INR 0.93; PROTHROMBIN TIME 12.8 SECONDS (12.7-14.5)
--- NOTE | 2021-04-16 15:45 | REP ---
INDICATION: abdominal/back pain, pleuritic pain. COMPARISON: None. TECHNIQUE: Single portable AP view of the chest was performed. FINDINGS: There is no acute infiltrate or pulmonary edema. Lungs are clear. The heart is not significantly enlarged. The mediastinal silhouette is unremarkable. The visualized osseous structures are intact. IMPRESSION: No acute pulmonary disease. <Electronically signed by Capo Sanders > 04/16/21 [id number]
[2021-04-16 15:46] LABS: PARTIAL THROMBOPLASTIN TIME 29.1 SECONDS (25.9-37.0)
[2021-04-16 16:05] LABS: ALBUMIN 4.4 GM/DL (3.2-5.2); ALT/SGPT 56 U/L (12-78); BILIRUBIN,DIRECT 0.1 MG/DL (0.0-0.2); BILIRUBIN,TOTAL 0.4 MG/DL (0.2-1.0); BLOOD UREA NITROGEN 18 MG/DL (7-18); CARBON DIOXIDE LEVEL 29 MEQ/L (21-32); CHLORIDE LEVEL 104 MEQ/L (98-107); CK-MB VALUE MASS < 1.0 NG/ML (<3.6); CPK CREATINE PHOSPHOKINASE 271 U/L (39-308); CREATININE FOR GFR 1.27 MG/DL (0.70-1.30); GLOMERULAR FILTRATION RATE > 60.0 (>60); GLUCOSE, FASTING 91 MG/DL (70-100); LIPASE 93 U/L (73-393); MB/CK RELATIVE INDEX 0.37 (< OR =4); POTASSIUM SERUM 4.6 MEQ/L (3.5-5.1); SODIUM LEVEL 139 MEQ/L (136-145); TOTAL PROTEIN 8.1 GM/DL (6.4-8.2); TROPONIN I < 0.02 NG/ML (< 0.10)
--- OUTSIDE RECORDS SUMMARY | 2021-04-16 16:24 | CCD ---
Author Author [facility] Organization [facility] Address Unknown Phone Unavailable Care Team Providers Care Script Reader Name Role Phone TURRIN, MALKA Unavailable Unavailable [...] is protected by Article 27-F of the [facility] Public Health law. If you continue you may have access to information: Regarding HIV / AIDS; Provided by facilities licensed or operated by the [facility] Office of Mental Health; or Provided by the [facility] Office for People With Developmental Disabilities. If such information is present, then the following [facility] mandated warning applies: This information has been [...] law may result in a fine or usp sentence or both. A general authorization for the release of medical or other information is NOT sufficient authorization for further disc losure. Encounters Encounter Providers Location Date Indications Data Source(s ) Emergency Attender: MALKA ROSALESConsultant: DEISY CRISTOBALH KEY 01/29/2021 06:07:00 PM EDT - 01/29/2021 11:16:00 PM EDT [facility] Patient discharged. Medications No Information Insurance Providers Payer name Policy type / Coverage type Policy ID Covered republican ID Covered republican's relationship to gonzalez Policy Gonzalez Plan Information [facility] [employer] [employer] [id number] SP [id number] [facility] [employer] [id number] SP [id number] [facility] HUMANA - O/P [id number] 18 [id number] Problems, Conditions, and Diagnoses Code Display Name Description Problem Type Effective Dates Data Source(s) Y9289 Other specified places as the place of o ccurrence of the external cause Other specified places as the place of occurrence of the external cause Diagnosis 01/29/2021 06:07:00 PM EDT [facility] [id number] Other cause of strike by thr own, projected or falling object, initial encounter Other cause of strike by thrown, project ed or falling object, initial encounter Diagnosis 01/29/2021 06:07:00 PM EDT [facility] [id number] Crushing injury of left great toe, initi al encounter Crushing injury of left great toe, initial encounter Diagnosis 01/29/2021 06:07:00 PM EDT [facility] [id number] Unspecified open wound of le ft great toe with damage to nail, initial encounter Unspecified open wound of left great toe with damage to nail, initial encounter Diagnosis 01/29/2021 06:07:00 PM [facility] [id number] Unspecified injury of left foot, initial encounter Unspecified injury of left foot, initial encounter Diagnosis 01/29/2021 06:07:00 PM EDT [facility] Surgeries/Procedures No Information Results ID Date Data Source [id number] 04/10/2021 04:57:00 AM EDT MARY ALICEIL Name Value Range Interpretation Code Description Data Kristin rce(s) Supporting Document(s) SARS coronavirus 2 RNA [Presence] in Res piratory specimen by KATHY with probe detection NEGATIVE NYSDIL This lab was ordered by [facility] a nd reported by [facility]. ID Date Data Source [id number] 01/31/2021 01:33:00 PM EDT [facility] [address] [place] [address] PHONE: [phone] FAX: [phone] Name .................. : PAYTON Lopez Acct Number.................. : [id number] ROOM. ................. : TR-08 Number ................... : [id number] Stay type ............. : E/R Discharge Date......... ... : 01/29/21 Admit Date ......... : 01/29/21 Admit Phys .................... : CONNIE VEE Date of ....... : 1995 Family Phys ................... : UNKNOWN Phone .................. : [phone] Age ................................ : 25 Film# .................. .:[id number] Sex ................................. : M Unsigned transcriptions are preliminary reports and do not represent a medical or legal document FOOT COMP - BILATERAL 61602 COMPLETE:01/29/21 22:07 DLA 11940 Reason(s): 1700 lb create fell off pallet [...] rce(s) Supporting Document(s) ID Date Data Source [id number] 01/29/2021 06:07:00 PM EDT [facility] 1 OrderSheet [facility] Emergency Department [address] [place] [address] Phone #: ext- [phone] 01/29/2021 18:02 Patient: SHIELA CAIN Sex: M [...] 01/29/2021 22:59 Sherry Bernard R.N.; 2 OrderSheet [facility] Emergency Department [address] [place] [address] Phone #: ext- [phone] 01/29/2021 18:02 Patient: SHIELA CAIN Sex: M : 1995 Age: 25y[Electronically signed by Sherry Bernard R.N. (23:16 01/29/2021)][Electronically signed by Linda Saldaña (18:58 01/30/2021)][Electronically locked by Sherry Bernard R.N. (23:16 01/29/2021)] Name Value Range Interpretation Code Description Data Kristin rce(s) Supporting Document(s) ID Date Data Source [id number] 01/29/2021 06:07:00 PM EDT [facility] 1 Medication Reconciliation Report [facility] Emergency Department [address] [place] [address] Phone #: ext- [phone] 01/29/2021 18:02 Patient: SHIELA CAIN Sex: M [...] Dispense 8tablet. Refills: 0. Substitution permitted.Pharmacy - [facility] [phone] ; [place] [address]. .ibuprofen 600 mg tablet 1 tablet every six hours -- Dispense 30 tablet. Refills: 0. Substitutionpermitted.Pharmacy - [facility] [phone] ; [place] [address]. . -- Parveen Macecomauro 5/325mg; 1 tab by mouth as needed for pain. dispense 1 tab home from theEDVOID. -- KENZIE Mace Name Value Range Interpretation Code Description Data Kristin rce(s) Supporting Document(s) ID Date Data Source [id number] 01/29/2021 06:07:00 PM EDT [facility] 1 Medication Administration Record [facility] Emergency Department [address] [place] [address] Phone #: ext [phone] 01/29/2021 18:02 Patient: [...] TopicalGiven PERCOCET [PO] Percocet PO 1 tab ([id number] 01/29/2021 (OXYCODONE- ACETAMINOPHEN) home)Sherry Bernard R.N. Dose: 1 tab 5/325 mg Tablets PO Name Value Range Interpretation Code Description Data Kristin rce(s) Supporting Document(s) ID Date Data Source [id number] 01/29/2021 06:07:00 PM EDT [facility] 1 General Instructions [facility] Emergency Department [address] [place] [address] Phone #: ext- [phone] 01/29/2021 18:02 Patient: SHIELA CAIN Sex: M [...] Dispense 8tablet. Refills: 0. Substitution permitted.Pharmacy - [facility] [phone] ; [place] [address]. .ibuprofen 600 mg tablet 1 tablet every six hours -- Dispense 30 tablet. Refills: 0. Substitutionpermitted.Pharmacy - [facility] [phone] ; [place] [address]. .percocet 5/325mg; 1 tab by mouth as needed for pain. dispense 1 tab home from theEDVOID.Understanding of the discharge instructions verbalized by patient.Follow-up with: [facility] CALL [facility], , , , , , , Follow up tomorrow. Reason for referral: evaluation and treatment. Summary of care provided to mark paper. 2 General Instructions [facility] Emergency Department [address] [place] [address] Phone #: ext- [phone] 01/29/2021 18:02 Patient: SHIELA CAIN Sex: M [...] and swelling go away. You may use kvcb-maw-amqgwmy pain medicine such as acetaminophen, ibuprofen, or [...] wet, you can dry it with a wheelchair van operator first responder. Unless told otherwise, you can take off [...] at your follow-upvisit. 3 General Instructions [facility] Emergency Department [address] [place] [address] Phone #: ext- [phone] 01/29/2021 18:02 Patient: [...] or as directed by your healthcare provider [phone] [employer]. [address] [place] [address]. All rights reserved. This information is not intended as asubstitute for professional medical care. Always follow your healthcare professional's instructions. You have been given the following additional information: Crush Injury, Foot/Toe No weight bearing. Do not work for four.(Electronically signed by KENZIE Mace 01/30/2021 18:58) Name Value Range Interpretation Code Description Data Kristin rce(s) Supporting Document(s) ID Date Data Source [id number] 01/29/2021 06:07:00 PM EDT [facility] 1 Clinical Report - Nurses [facility] Emergency Department [address] [place] [address] Phone #: cqw- [phone] 01/29/2021 18:02 Patient: SHIELA CAIN Sex: M [...] with limp. Subungual hematoma noted to nail.).Treatment WIND FARM SUPPORT SPECIALIST:None.SEPSIS SCREEN: SIRS SCREEN NEGATIVE. SEPSIS SCREEN [...] SURGERIES:Cholecystectomy.Right foot surgery. --18:56 01/29/21 Sherry Bernard R.N.Snnvtcm67:58 01/29/21.SOCIAL HX: Never smoker. No alcohol use or drug use. He was offered HIV testing but declined and 2 Clinical Report - Nurses [facility] Emergency Department [address] [place] [address] Phone #: ext- [phone] 01/29/2021 18:02 Patient: SHIELA CAIN Sex: M [...] treatment room. --18:58 01/29/21 Sherry Bernard R.N.PHYSICAL [id number] 01/29/21. Ambulatory to room.GENERAL / NEURO / [...] RR: 16. O2 saturation: 100%. --19:47 01/29/21 [place] linoleum layerAlivia ER Tech1 20:50 01/29/2021 Toradol (Ketorolac Tromethamine) IM 30 mg given. Given in the left deltoid. Allergies 3 Clinical Report - Nurses [facility] Emergency Department [address] [place] [address] Phone #: ext- [phone] 01/29/2021 18:02 Patient: SHIELA CAIN Sex: M [...] patient demonstrated proper use. --23:03 01/29/21 Sherry Benrard R.N. 23:08 01/29/2021 Percocet (oxyCODONE-Acetaminophen) PO 5/325 [...] present. Discharge instructions provided and reviewed with industrial pharmacist and the patient. Reviewed medication(s) side effects, precautions, dosing and course information. Prescription(s) given to the patient and sent electronically to pharmacy. Medication(s) for home use given to the patient per protocol. Patient and industrial pharmacist verbalized understanding. Written instructions provided in Macedonian. The patient was discharged by the physician assurance assistant. He was discharged home and accompanied by industrial pharmacist. He left ambulatory on crutches and via private vehicle. 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 --23:15 01/29/21 Sherry Bernard R.N.Locked/Released at 01/29/2021 23:16 by Sherry Bernard R.N. 4 Clinical Report - Nurses [facility] Emergency Department [address] [place] [address] Phone #: ext- [phone] 01/29/2021 18:02 Patient: SHIELA CAIN Sex: M : 1995 Age: 25y Name Value Range Interpretation Code Description Data Kristin rce(s) Supporting Document(s) ID Date Data Source [id number] 01/29/2021 06:07:00 PM EDT [facility] 1 Clinical Report - Physicians/Mid Levels [facility] Emergency Department [address] [place] [address] Phone #: ext- [phone] 01/29/2021 18:02 Patient: [...] EXAM 2 Clinical Report - Physicians/Mid Levels [facility] Emergency Department [address] [place] [address] Phone #: ext- [phone] 01/29/2021 18:02 Patient: SHIELA CAIN Sex: M [...] treatment. 3 Clinical Report - Physicians/Mid Levels [facility] Emergency Department [address] [place] [address] Phone #: ext- [phone] 01/29/2021 18:02 Patient: [...] tablet. Refills: 0. Substitution permitted. Pharmacy - [facility] [phone] ; [place] [address]. . ibuprofen 600 mg tablet 1 tablet every six hours -- Dispense 30 tablet. Refills: 0. Substitution permitted. [facility] [phone] ; [place] [address]. . percocet 5/325mg; 1 tab by mouth as needed for pain. dispense 1 tab home from the EDVOID. Understanding of the discharge instructions verbalized by patient. Follow-up with: [facility], , , , , , , Follow up tomorrow. Reason for referral: evaluation and treatment. Summary of care provided to patient via paper. 4 Clinical Report - Physicians/Mid Levels [facility] Emergency Department [address] [place] [address] Phone #: ext- [phone] 01/29/2021 18:02 Patient: SHIELA CAIN Sex: M : 1995 Age: [age]y(Electronically signed by KENZIE Mace 01/30/2021 18:58) Name Value Range Interpretation Code Description Data Kristin rce(s) Supporting Document(s) Procedure Social History No Information
[2021-04-16] MEDS ORDERED: ISOVUE-370 76% 100ML VIAL As Ordered ONE (16:58)
--- NOTE | 2021-04-16 17:42 | REPVR ---
PROCEDURE INFORMATION: Exam: CTA Chest With Contrast Exam date and time: 04/16/2021 4:41 PM Age: 26 years old Clinical indication: Other: Chest pain; Additional info: Post op chest and abdominal pain TECHNIQUE: Imaging protocol: Computed tomographic angiography of the chest with contrast. 3D rendering (Not supervised by radiologist): MIP reconstructed images were created by the technologist. Radiation optimization: All CT scans at this facility use at least one of these dose optimization techniques: automated exposure control; mA and/or kV adjustment per patient size (includes targeted exams where dose is matched to clinical indication); or iterative reconstruction. Contrast material: ISOVUE 370; Contrast volume: 100 ml; Contrast route: INTRAVENOUS (IV); COMPARISON: CR PORTABLE CHEST X-RAY 04/16/2021 3:25 PM FINDINGS: Pulmonary arteries: No pulmonary artery embolism identified. Aorta: No aortic aneurysm. No aortic dissection. Thyroid: The partially imaged bilateral thyroid lobes are unremarkable. Lungs: Unremarkable. No consolidation. No masses. Pleural spaces: No pneumothorax. No pleural effusion. Heart: Normal. No pericardial effusion. Lymph nodes: No enlarged lymph nodes. Bones/joints: Unremarkable. No acute fracture. Soft tissues: Unremarkable. IMPRESSION: 1. No thoracic aortic aneurysm or dissection identified. 2. No pulmonary artery embolism identified. 3. Please see the abdomen/pelvis CT report of the same date for additional findings. Electronically signed by: Kole Langford On 04/16/2021 17:41:54 PM
--- NOTE | 2021-04-16 17:45 | REPVR ---
PROCEDURE INFORMATION: Exam: CT Abdomen And Pelvis With Contrast Exam date and time: 04/16/2021 4:41 PM Age: 26 years old Clinical indication: Abdominal pain; Prior surgery; Surgery date: 3-7 days post-operative; Surgery type: Lap; Additional info: Post op chest and abdominal pain TECHNIQUE: Imaging protocol: Computed tomography of the abdomen and pelvis with contrast. Radiation optimization: All CT scans at this facility use at least one of these dose optimization techniques: automated exposure control; mA and/or kV adjustment per patient size (includes targeted exams where dose is matched to clinical indication); or iterative reconstruction. Contrast material: ISOVUE 370; Contrast volume: 100 ml; Contrast route: INTRAVENOUS (IV); COMPARISON: CT ABD PELVIS W/O CONTRAST 04/10/2021 4:33 AM FINDINGS: Liver: Normal. No mass. Gallbladder and bile ducts: The gallbladder is surgically absent, with metallic clips in the gallbladder fossa. No extrahepatic biliary ductal dilatation or calculus. Pancreas: Normal. No ductal dilation. Spleen: Normal. No splenomegaly. Adrenal glands: Normal. No mass. Kidneys and ureters: Normal. No hydronephrosis. Stomach and bowel: Minimal pericecal operative site edema, interval improvement. Sigmoid-descending colonic junction diverticula are present without evidence of diverticulitis. Appendix: Surgical luis and/or clips are noted at the previous base of the appendix. The appendix is surgically absent. Intraperitoneal space: Minimal posterior pelvic peritoneal fluid, likely postoperative/physiologic. Vasculature: Unremarkable. No abdominal aortic aneurysm. Lymph nodes: No enlarged lymph nodes. Urinary bladder: Unremarkable as visualized. Reproductive: Unremarkable as visualized. Bones/joints: Unremarkable. No acute fracture. Soft tissues: Unremarkable. IMPRESSION: 1. Prior cholecystectomy. 2. Interval appendectomy. 3. Diverticulosis. 4. No acute abnormality identified. 5. Please see the CTA chest report of the same date for additional findings. Electronically signed by: Kole Langford On 04/16/2021 17:45:10 PM
[2021-04-16] MEDS ORDERED: GI COCKTAIL 50ML BTL(HYOSCYAMINE/MAALOX/LIDOCAINE VISCOUS)(1:3:1) PO ONE (17:55)
[2021-04-16] MEDS ORDERED: KETOROLAC 30 MG/ML 1ML VIAL IV ONE (19:30)
[2021-04-16] MEDS ORDERED: METHOCARBAMOL 1,000 MG/10 ML VIAL (J2800) IV ONE (20:15)
[2021-04-16] MEDS ORDERED: PERCOCET 5MG/325MG TAB PO ONE (20:15)
[2021-04-16] MEDS ORDERED: METH-1165 PO (22:21)
[2021-04-16] MEDS ORDERED: methocarbamoL 750 MG TAB PO ONE (22:25)
[2021-04-16 22:46] VITALS: BP 158/84
--- NOTE | 2021-04-17 01:10 | ECGEPIP ---
[facility] - ED Test Date: 2021-04-16 Pat Name: SHIELA CAIN Department: Room: - Gender: Male It Desktop Support Technician: CECI : 1995 Requested By: LORENZO Ingram Order Number: [id number] Reading MD: Lorenzo Schaefer Measurements Intervals [place] Rate: 73 P: 55 MD: 164 QRS: 68 QRSD: 92 T: 19 QT: 350 QTc: 385 Interpretive Statements Normal sinus rhythm Delayed anterior R wave progression Comparison tracing not on file Electronically Signed on 04-17-2021 1:10:47 EDT by Lorenzo Schaefer
== END 2021-04-16 22:58 | disposition home or self-care (01) ==
LOC: M ED 14:32
DX: G89.18 Other acute postprocedural pain (principal); M54.9 Dorsalgia, unspecified; K57.30 Diverticulosis of large intestine without perforation or abscess without bleeding; Z79.899 Other long term (current) drug therapy
CPT/HCPCS: 36415; 71045; 71275; 74177; 80047; 80048; 80076; 81001; 82550; 82553; 83605; 83690; 84484; 85025; 85610; 85730; 86850; 86900; 86901; 87040; 93005; 93041; 96361; 96374; 96375; 96376; 99285; J1170; J1885; J2800; Q9967